=== PATIENT | female | born 2005 | race Caucasian/White ===

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

== ENCOUNTER → 2025-02-10 | Outpatient (CLI) | payer OTHER ==
[2025-02-11 05:05] LABS: Alternaria alternata IgE <0.10 kU/L; Aspergillus fumagatus IgE <0.10 kU/L; Cat Epith & Dander IgE 0.75 kU/L; Cladosporian herbarum IgE <0.10 kU/L; Dermato. farinae IgE 0.34 kU/L; Oak IgE 0.89 kU/L; Ragweed,Common IgE 0.92 kU/L; Red Top (Bentgrass) IgE 53.70 kU/L
== END | disposition home or self-care (01) ==
LOC: LABWHC1 15:56
PROVIDERS: ATTEND Internal Medicine Critical Care Medicine
DX: J45.20 Mild intermittent asthma, uncomplicated (principal)
CPT/HCPCS: 36415; 82785; 85008; 86003